=== PATIENT | male | born 1940 | race Caucasian/White ===

== ENCOUNTER → 2019-08-20 | Outpatient (CLI) | payer MEDICARE, BC ==
[~2019-08-20] MED LIST: CATHETER FLUSH 10 ML SYR IV PRN; HOLD METFORMIN - RECEIVED CONTRAST 20 ML VIAL IV SCH; IOHEXOL 350 MG/ML 100 ML (OMNIPAQUE 350) VIAL IV ONE; NS 100 ML (IVPB) BAG IV ONE
[2019-08-20 13:27] LABS: BUN/CREATININE RATIO 24; CARBON DIOXIDE 22 MMOL/L (21-32); CREATININE SERUM 0.79 MG/DL (0.60-1.30); GFR ESTIMATED > 60; GLUCOSE 103 MG/DL (70-105)
[2019-08-20 13:32] LABS: CALCIUM 9.5 MG/DL (8.5-10.1)
--- NOTE | 2019-08-20 14:51 | Diagnostic Imaging Report ---
PROCEDURE: CT chest with contrast only. TECHNIQUE: Multiple contiguous axial images were obtained through the chest after administration of intravenous contrast. Auto Exposure Controls were utilized during the CT exam to meet ALARA standards for radiation dose reduction. INDICATION: Prostate carcinoma and lung nodule. COMPARISON: No prior studies are available for comparison. FINDINGS: No axillary lymphadenopathy is detected. There are multiple mediastinal lymph nodes present. No definite pathologically enlarged nodes are seen. A low right paratracheal node demonstrates a short axis measurement of 9 mm. No definite hilar lymphadenopathy is seen. There are coronary arterial calcifications present. No pericardial or pleural fluid is detected. Parenchymal evaluation does show a fairly well-circumscribed nodule in the right lower lobe measuring 10 mm in size. There is some adjacent scarring or atelectasis present. Remainder of the lung wilson appear to be clear. No infiltrates are seen. Imaging through the upper abdomen does show several circumscribed low densities in the liver suggestive of cysts. No adrenal mass is detected. IMPRESSION: Right lower lobe pulmonary nodule, indeterminate. PET/CT study would be useful to evaluate for hypermetabolism. No thoracic lymphadenopathy is identified. Dictated by: Dictated on workstation # [id number]
[2019-08-20 15:02] LABS: CHLORIDE 105 MMOL/L (98-107); POTASSIUM 4.3 MMOL/L (3.6-5.0); SODIUM 136 MMOL/L (135-145)
== END ==
LOC: LAB FS 12:28
PROVIDERS: ATTEND Family Medicine
DX: I10 Essential (primary) hypertension (principal); C61 Malignant neoplasm of prostate; R91.1 Solitary pulmonary nodule
CPT/HCPCS: 36415; 71260; 80048